=== PATIENT | female | born 1985 | race Two or more races ===

== ENCOUNTER 2020-03-06 18:10 | Emergency (ER) | payer BC ==
[~2020-03-06] VITALS: Ht 162.6 cm; Wt 88.5 kg
--- NOTE | 2020-03-06 18:48 | NUR ---
PT IN HER CAR. CONTACT #[phone]
[2020-03-06 19:41] VITALS: BP 130/80
--- NOTE | 2020-03-06 19:42 | NUR ---
PT BROUGHT IN ROOM; VITAL SIGNS UPDATED, +TACHY, AFEBRILE, -SOB, O2 SAT ABOVE 98%
[2020-03-06] MEDS ORDERED: ACETAMINOPHEN 325 MG TABLET PO ONE (20:30)
[2020-03-06] MEDS ORDERED: ACETAMINOPHEN ES 500 MG TABLET ONE (20:40)
--- NOTE | 2020-03-06 20:54 | NUR ---
Patient discharged to home in stable condition. Written and verbal after care instructions given. Patient verbalizes understanding of instruction. Pt ambulatory with a steady gait
== END 2020-03-06 20:59 | disposition home or self-care (01) ==
LOC: ER 18:16
DX: R50.9 Fever, unspecified (principal); R53.81 Other malaise; R00.0 Tachycardia, unspecified; Z87.891 Personal history of nicotine dependence; Z03.818 Encounter for observation for suspected exposure to other biological agents ruled out
CPT/HCPCS: 0099U; 36415; 87635; 87804; 99283